=== PATIENT | female | born 1960 | race Caucasian/White ===

== ENCOUNTER 2017-06-25 17:07 | Emergency (ER) | payer MEDICARE ==
[~2017-06-25] VITALS: Ht 167.6 cm; Wt 63.2 kg
[~2017-06-25 17:07] MED LIST: ANTI-DEPRESSANT PO; CITA10TA4 PO; CYAN1TAB29 PO; DIVA-68 PO; FLUO40CA2 PO; HYDR-3240 PO; HYDR25CA PO; PRAZ5CAP2 PO; [UNRECOGNIZED DRUG - OTHER] PO
[2017-06-25 18:27] VITALS: BP 119/72
[2017-06-25] MEDS ORDERED: OLAN20TA7 PO (18:42)
[2017-06-25] MEDS ORDERED: TRAZ100T15 PO (18:42)
[2017-06-25] MEDS ORDERED: HYDR50TA13 PO (18:42)
[2017-06-25] MEDS ORDERED: PRAZ2CAP2 PO (18:42)
[2017-06-25] MEDS ORDERED: DIVA250T14 PO (18:42)
[2017-06-25 18:48] LABS: BASOPHILS # (AUTO) 0.03 x10^3/uL (0-0.1); BASOPHILS % (AUTO) 0 % (0-1); EOSINOPHILS # (AUTO) 0.15 x10^3/uL (0-0.4); EOSINOPHILS % (AUTO) 2 % (1-7); LYMPHOCYTES # (AUTO) 2.75 x10^3/uL (1-3.4); LYMPHOCYTES % (AUTO) 40 % (22-44); MD NO; MEAN CORPUSCULAR HEMOGLOBIN 31.8 pg (27.0-34.8); MEAN CORPUSCULAR HGB CONC 34.1 g/dL (32.4-35.8); MEAN CORPUSCULAR VOLUME 93.3 fL (80-100); MEAN PLATELET VOLUME 7.3 fL (7.4-10.4); MONOCYTES # (AUTO) 0.61 x10^3/uL (0.2-0.8); MONOCYTES % (AUTO) 9 % (2-9); NEUTROPHILS # (AUTO) 3.37 x10^3/uL (1.8-6.8); NEUTROPHILS % (AUTO) 49 % (42-75); PLATELET COUNT 264 x10^3/uL (130-400); RED BLOOD COUNT 4.01 x10^6/uL (3.82-5.3); RED CELL DISTRIBUTION WIDTH 14.5 % (9.6-15.2)
[2017-06-25 18:58] LABS: ALBUMIN 3.2 g/dL (3.4-5.0); ANION GAP 6 mmol/L (5-15); CALCIUM 8.7 mg/dL (8.5-10.1); CHLORIDE 103 mmol/L (98-107); CREATININE 0.69 mg/dL (0.55-1.02)
[2017-06-25 19:02] LABS: TROPONIN I < 0.015 ng/mL (0.000-0.045)
[2017-06-25 19:13] LABS: MICROSCOPIC NOT IND
[2017-06-25 19:16] LABS: CULTURE INDICATED? NO
[2017-06-25 19:25] LABS: AMPHETAMINE SCREEN, URINE Positive (Negative); BARBITURATE SCREEN, URINE Negative (Negative); BENZODIAZEPINE SCREEN, URINE Negative (Negative); CANNABINOID SCREEN, URINE Positive (Negative); COCAINE SCREEN, URINE Negative (Negative); METHADONE SCREEN, URINE Negative (Negative); OPIATE SCREEN, URINE Negative (Negative)
== END 2017-06-25 20:06 | disposition home or self-care (01) ==
LOC: ED 18:11
DX: F15.129 Other stimulant abuse with intoxication, unspecified (principal); R05 Cough; Z72.89 Other problems related to lifestyle; Z79.899 Other long term (current) drug therapy
CPT/HCPCS: 36415; 71046; 80048; 80307; 81003; 82040; 84484; 85025; 99285

== ENCOUNTER 2017-09-01 11:13 | Emergency (ER) | payer MEDICARE ==
[~2017-09-01] VITALS: Ht 157.5 cm; Wt 60.1 kg
[~2017-09-01 11:13] MED LIST changes: +DIVA250T14 PO; +HYDR50TA13 PO; +OLAN20TA7 PO; +PRAZ2CAP2 PO; +TRAZ100T15 PO
[2017-09-01 12:37] LABS: BASOPHILS # (AUTO) 0.06 x10^3/uL (0-0.1); BASOPHILS % (AUTO) 1 % (0-1); EOSINOPHILS # (AUTO) 0.06 x10^3/uL (0-0.4); EOSINOPHILS % (AUTO) 1 % (1-7); LYMPHOCYTES # (AUTO) 1.85 x10^3/uL (1-3.4); LYMPHOCYTES % (AUTO) 16 % (22-44); MD NO; MEAN CORPUSCULAR HGB CONC 33.8 g/dL (32.4-35.8); MEAN CORPUSCULAR VOLUME 91.6 fL (80-100); MEAN PLATELET VOLUME 7.7 fL (7.4-10.4); MONOCYTES # (AUTO) 0.96 x10^3/uL (0.2-0.8); MONOCYTES % (AUTO) 8 % (2-9); NEUTROPHILS # (AUTO) 8.83 x10^3/uL (1.8-6.8); NEUTROPHILS % (AUTO) 75 % (42-75); PLATELET COUNT 304 x10^3/uL (130-400); RED BLOOD COUNT 4.28 x10^6/uL (3.82-5.3); RED CELL DISTRIBUTION WIDTH 14.4 % (9.6-15.2)
[2017-09-01 12:42] LABS: ANION GAP 12 mmol/L (5-15); CALCIUM 9.2 mg/dL (8.5-10.1); CHLORIDE 100 mmol/L (98-107); CREATININE 0.78 mg/dL (0.55-1.02)
[2017-09-01 13:01] VITALS: BP 141/84
[2017-09-01 14:33] LABS: AMPHETAMINE SCREEN, URINE Positive (Negative); BARBITURATE SCREEN, URINE Negative (Negative); BENZODIAZEPINE SCREEN, URINE Negative (Negative); CANNABINOID SCREEN, URINE Positive (Negative); COCAINE SCREEN, URINE Negative (Negative); METHADONE SCREEN, URINE Negative (Negative); OPIATE SCREEN, URINE Negative (Negative)
== END 2017-09-01 14:52 | disposition home or self-care (01) ==
LOC: ED 14:28
DX: G40.409 Other generalized epilepsy and epileptic syndromes, not intractable, without status epilepticus (principal); Z72.9 Problem related to lifestyle, unspecified; F32.9 Major depressive disorder, single episode, unspecified; Z79.899 Other long term (current) drug therapy
CPT/HCPCS: 36415; 70450; 80048; 80164; 80307; 82040; 85025; 99285

== ENCOUNTER 2019-09-10 14:00 | Emergency (ER) | payer BC, MEDICARE ==
[~2019-09-10] VITALS: Ht 160 cm; Wt 68.0 kg
[~2019-09-10 14:00] MED LIST changes: +DIVA-61 PO; -DIVA-68 PO; -HYDR50TA13 PO; +HYDR50TA99 PO; +OLAN20TA14 PO; -OLAN20TA7 PO; +TRAZ-175 PO; -TRAZ100T15 PO
[2019-09-10 14:09] VITALS: BP 134/88
--- NOTE | 2019-09-10 14:14 | NUR ---
PT WAS BIB EMS. PTS DAUGHTER CALLED 911 BECAUSE "SHE IS NOT TAKING HER PSYCH MEDS AND IS NOT ACTING RIGHT". PT IS POOR HISTORIAN WITH SLURRED SPEECH. PT IS AOX3, PERSON, PLACE, TIME. WAS UNSURE WHY SHE WAS BROUGHT TO THE HOSPITAL. PT DOES HAVE A COUGH AND "SORE THROAT". PT IS CONNECTED TO MONITORING EQUIPMENT.
== END 2019-09-10 15:21 | disposition home or self-care (01) ==
LOC: ED 14:35
DX: R41.82 Altered mental status, unspecified (principal); F17.200 Nicotine dependence, unspecified, uncomplicated; Z91.14 Patient's other noncompliance with medication regimen
CPT/HCPCS: 99283